=== PATIENT | male | born 1965 | race Caucasian/White ===

== ENCOUNTER → 2016-10-07 | Outpatient (CLI) | payer BC ==
--- NOTE | 2016-10-07 08:52 | RAD ---
HISTORY: Constipation Study: Acute abdominal series Comparison: None Findings: The trachea is midline. The cardiac silhouette is unremarkable. The lungs are clear without focal infiltrate or effusion. The bony thorax is unremarkable. Flat plate and upright evaluation of the abdomen demonstrates a normal bowel gas pattern. No pneumop eritoneum is identified. Only moderate stool is present.. No pathological soft tissue mass or calci fication can be observed. The bony structures are grossly intact. IMPRESSION: 1. No acute cardiopulmonary disease. 2. No evidence for acute abdominal pathology identified. 3. Moderate stool Reported By:
== END ==
LOC: RAD 08:27
PROVIDERS: ATTEND Obstetrics & Gynecology Obstetrics
DX: K59.01 Slow transit constipation (principal)
CPT/HCPCS: 74022

== ENCOUNTER → 2016-11-15 | Outpatient (CLI) | payer BC ==
--- NOTE | 2016-11-15 15:32 | CT ---
CT abdomen pelvis without contrast Indication: Hematuria and flank pain Technique: Helical CT images of the abdomen and pelvis were obtained without contrast. Reformatted i mages in the coronal and sagittal planes were also generated for review. Comparison: None Findings: There is a 3 mm nodule within the right lower lobe (axial image 8, series 4). Visualized l nancy bases are otherwise clear. No aggressive osseous lesions are identified. Within the limits of a noncontrast exam, the liver, gallbladder, spleen and adrenal glands are unrem arkable. There is mild fatty atrophy of the pancreas with very subtle stranding noted about the panc reatic head and body. No discrete peripancreatic fluid collection is identified. Both kidneys and ur eters are normal in appearance without evidence of radiopaque urinary tract calculi or hydroureteron ephrosis. There is very mild diverticulosis of the distal transverse colon without evidence of acute inflammat ion. A small sliding hiatal hernia is noted. The remaining GI tract, including the appendix appears normal. The IVC, abdominal aorta, urinary bladder and prostate are unremarkable. No free air, free fluid or lymphadenopathy is identified. Impression: 1. Very subtle stranding about the pancreatic head and body, possibly reflecting mild acute pancreat itis. Correlation with amylase and lipase levels is recommended. 2. Otherwise, unremarkable noncontrast CT examination of the abdomen and pelvis. Specifically, no CT evidence of urolithiasis or obstructive uropathy. 3. Incidental 3 mm right lower lobe nodule, nonspecific but likely infectious or inflammatory in leeroy ology. Comparison with prior imaging if available or further evaluation with nonemergent CT chest is recommended, if indicated. Reported By:
== END ==
LOC: RAD 14:01
PROVIDERS: ATTEND Obstetrics & Gynecology Obstetrics
DX: R31.29 Other microscopic hematuria (principal); N23 Unspecified renal colic
CPT/HCPCS: 74176

== ENCOUNTER → 2017-02-07 | Outpatient (CLI) | payer BC ==
[~2017-02-07] MED LIST: NS 100 ML IV 100 ML IV ONE
[2017-02-07 09:29] LABS: CREATININE 1.03 mg/dL (0.70-1.30)
--- NOTE | 2017-02-08 17:02 | CT ---
HISTORY: Pulmonary nodule follow-up. Study: CT chest with contrast Comparison: CT abdomen/pelvis dated November 15, 2016. Technique: Multiple axial images of the chest were obtained from the thoracic inlet to the upper abdo men after the administration of IV contrast. MIP images were obtained. Dose reduction techniques incl uding Automated Exposure Control (AEC) and adjustment of mA and kV were utilized. Findings: The mediastinum does not demonstrate significant pathological lymphadenopathy. There is no paracardi al effusion observed. The thoracic aorta is normal in its contour without evidence for aneurysmal di latation. Study not adequately timed for the pulmonary arteries, but no obvious pulmonary embolus. No obvious pulmonary nodule, mass, pleural effusion, focal consolidation, or pneumothorax. The visual ized upper abdominal structures demonstrate normal contrast appearance. Degenerative changes of the s pine. IMPRESSION: No CT evidence of acute thoracic pathology. Reported By:
== END ==
LOC: RAD 08:48
PROVIDERS: ATTEND Obstetrics & Gynecology Obstetrics
DX: R91.1 Solitary pulmonary nodule (principal)
CPT/HCPCS: 36415; 71260; 82565; 84520; A4222